=== PATIENT | female | born 1955 | race Caucasian/White ===

== ENCOUNTER 2017-09-01 11:06 | Outpatient (CLI) | payer BC ==
--- NOTE | 2017-09-01 12:18 | MMO ---
BILATERAL SCREENING MAMMOGRAMS: DATE: 09/01/17 Reference made to prior mammograms dating back to June 2010. This patient's mammogram was interpreted with the assistance of computer-aided detection. FINDINGS: There is heterogeneously dense breast parenchyma bilaterally, which limits the sensitivity of mammog eugenio and could obscure underlying pathology. Punctate, benign-appearing calcification of the left b reast is stable. No new suspicious abnormalities are present. IMPRESSION: BIRADS 2: Benign Finding(s) Annual screening mammography is recommended. POS: SITA
== END 2017-09-01 11:07 | disposition home or self-care (01) ==
LOC: SCSMAMMO 11:06
PROVIDERS: ATTEND Family Medicine
DX: Z12.31 Encounter for screening mammogram for malignant neoplasm of breast (principal)
CPT/HCPCS: 77067; G0202

== ENCOUNTER 2019-06-12 13:08 | Outpatient (CLI) | payer BC ==
--- NOTE | 2019-06-12 13:52 | MMO ---
Bilateral MAMMO Bilat Screen [facility]. CLINICAL HISTORY: Patient is 63 years old and is seen for screening. The patient has no family history of breast cancer. The patient has no personal history of cancer. The patient has a history of Excisional Biopsy - benign. VIEWS: The views performed were: bilateral craniocaudal with tomosynthesis and bilateral mediolateral oblique with tomosynthesis. FILMS COMPARED: The present examination has been compared to prior imaging studies performed at [facility] on 08/21/2013, 08/22/2014, 07/17/2016 and 09/01/2017. MAMMOGRAM FINDINGS: There are scattered fibroglandular densities. There are no suspicious masses, suspicious calcifications, or new areas of architectural distortion. IMPRESSION: THERE IS NO MAMMOGRAPHIC EVIDENCE OF MALIGNANCY. A ROUTINE FOLLOW-UP MAMMOGRAM IN 1 YEAR IS RECOMMENDED. THE RESULTS OF THIS EXAM WERE SENT TO THE PATIENT. ACR BI-RADS Category 1 - Negative MAMMOGRAPHY NOTE: 1. A negative mammogram report should not delay a biopsy if a dominant of clinically suspicious mass is present. 2. Approximately 10% to 15% of breast cancers are not detected by mammography. 3. Adenosis and dense breasts may obscure an underlying neoplasm. Reported by: SALLY BAILEY MD Electonically Signed: [id number]
== END 2019-06-12 13:09 | disposition home or self-care (01) ==
LOC: BICMAMMO 13:08
PROVIDERS: ATTEND Family Medicine
DX: Z12.31 Encounter for screening mammogram for malignant neoplasm of breast (principal); Z91.89 Other specified personal risk factors, not elsewhere classified
CPT/HCPCS: 77063; 77067

== ENCOUNTER 2020-06-21 09:50 | Outpatient (CLI) | payer BC ==
--- NOTE | 2020-06-21 10:27 | MMO ---
Bilateral MAMMO Bilat Screen [facility]. CLINICAL HISTORY: Patient is 65 years old and is seen for screening. The patient has no family history of breast cancer. The patient has no personal history of cancer. The patient has a history of Excisional Biopsy - benign. VIEWS: The views performed were: bilateral craniocaudal with tomosynthesis and bilateral mediolateral oblique with tomosynthesis. FILMS COMPARED: The present examination has been compared to prior imaging studies performed at [facility] on 08/22/2014, 07/17/2016 and 09/01/2017, and at [facility] on 06/12/2019. This study has been interpreted with the assistance of computer-aided detection. MAMMOGRAM FINDINGS: There are scattered fibroglandular densities. There are no suspicious masses, suspicious calcifications, or new areas of architectural distortion. IMPRESSION: THERE IS NO MAMMOGRAPHIC EVIDENCE OF MALIGNANCY. A ROUTINE FOLLOW-UP MAMMOGRAM IN 1 YEAR IS RECOMMENDED. THE RESULTS OF THIS EXAM WERE SENT TO THE PATIENT. ACR BI-RADS Category 1 - Negative MAMMOGRAPHY NOTE: 1. A negative mammogram report should not delay a biopsy if a dominant of clinically suspicious mass is present. 2. Approximately 10% to 15% of breast cancers are not detected by mammography. 3. Adenosis and dense breasts may obscure an underlying neoplasm. Reported by: TONJA MOTA MD Electonically Signed: [id number]
== END 2020-06-21 09:51 | disposition home or self-care (01) ==
LOC: BICMAMMO 09:50
PROVIDERS: ATTEND Family Medicine
DX: Z12.31 Encounter for screening mammogram for malignant neoplasm of breast (principal); Z91.89 Other specified personal risk factors, not elsewhere classified
CPT/HCPCS: 77063; 77067

== ENCOUNTER 2021-04-03 14:55 | Outpatient (CLI) | payer BC | END 2021-04-03 14:56 | disposition home or self-care (01) | LOC: BICRAD 14:55 | PROVIDERS: ATTEND Family Medicine | DX: R05 Cough (principal) | CPT/HCPCS: 71046 ==

== ENCOUNTER 2022-01-07 11:25 | Outpatient (CLI) | payer MEDICARE | END 2022-01-07 11:26 | disposition home or self-care (01) | LOC: BICRAD 11:25 | PROVIDERS: ATTEND Family Medicine | DX: M25.562 Pain in left knee (principal); M79.89 Other specified soft tissue disorders ==

== ENCOUNTER 2023-01-28 12:50 | Outpatient (CLI) | payer MEDICARE, OTHER | END 2023-01-28 12:51 | disposition home or self-care (01) | LOC: BICMAMMO 12:50 | PROVIDERS: ATTEND Family Medicine | DX: Z12.31 Encounter for screening mammogram for malignant neoplasm of breast (principal); Z91.89 Other specified personal risk factors, not elsewhere classified; Z78.0 Asymptomatic menopausal state | CPT/HCPCS: 77063; 77067; 77080 ==

== ENCOUNTER 2023-03-30 12:07 | Outpatient (CLI) | payer MEDICARE, OTHER | END 2023-03-30 12:08 | disposition home or self-care (01) | LOC: BICRAD 12:07 | PROVIDERS: ATTEND Family Medicine | DX: M25.561 Pain in right knee (principal) ==